=== PATIENT | female | born 1945 | race Caucasian/White ===

== ENCOUNTER 2016-12-15 15:14 | Emergency (ER) | payer OTHER ==
[2016-12-15] MEDS ORDERED: NS 500 ML IV ONE (16:02)
--- NOTE | 2016-12-15 16:11 | EDPHY ---
H & P Time Seen by Provider: 12/15/16 15:55 HPI/ROS: HPI Right-sided abdominal pain. 71-year-old female by private vehicle. She complains of right-sided abdominal pain ongoing for the last 10 days. She reports that it is worse at night when she is laying on her right side. She describes it as a burning and aching sensation. She has had no associated nausea, vomiting or diarrhea. Her last meal was at 10:30 a.m. this morning. She had a normal bowel movement this morning. No bloody or melenic stool. Prior abdominal surgical history includes cholecystectomy. Her appendix is still in. She was evaluated or primary care physician's office and told to come to the emergency department for imaging. ROS: Constitutional: No fever, no chills. No weakness. Eyes: No discharge. No changes in vision. ENT: No sore throat. No nasal congestion or rhinorrhea. Respiratory: No cough. No shortness of breath. Cardiac: No chest pain, no palpitations. Gastrointestinal: As above, no vomiting, no diarrhea. Genitourinary: No hematuria. No dysuria or increased frequency with urination. Musculoskeletal: No back pain. No neck pain. No myalgias or arthralgias. Skin: No rashes. Neurological: No headache. No focal weakness or altered sensation. Past medical history: Hypertension, type 2 diabetes, sleep apnea, COPD, pulmonary hypertension on home O2 2 L 24-7. Cholecystectomy. Social history: Here by herself. No alcohol. Physical Exam: General Appearance: Alert, no distress. Moderately obese habitus. This patient is responding to questions appropriately and in full sentences. This patient appears well-hydrated and well-nourished. Eyes: Pupils equal and round no pallor or injection. No lid edema, erythema or injection. Respiratory: There are no retractions, lungs are clear to auscultation with good air movement bilaterally. Cardiovascular: Regular rate and rhythm. No murmur. Gastrointestinal: Abdomen is soft with vague right sided mid to lower tenderness on palpation, no masses, bowel sounds normal. No focal tenderness at McBurney's point. No Roe sign. Neurological: Motor sensory function is grossly intact. Cranial nerves are normal. Gait is normal. Skin: Warm and dry, no rashes. Musculoskeletal: Neck is supple and nontender. Extremities are symmetrical. All joints range without pain or impingement. Psychiatric: No agitation. No depression. Database: EKG: Imaging: CT scan of abdomen and pelvis with IV contrast: The appendix is well visualized and is unremarkable. Gallbladder is been removed. There is a solid mass left kidney lower pole measuring about a cm. She also has a new right lower lobe lung nodule measuring 8 mm. Some constipation. No AAA. Otherwise unremarkable study. Results were discussed with staff radiologist. Procedures: Emergency department course: After my evaluation, an IV was placed. She was started on IV normal saline with 500 cc to be given over the next hour. She declines pain medication initially. She will be sent for contrast enhanced CT imaging of her abdomen and pelvis. She endorses. 5:10 p.m., patient re-evaluated. She is resting comfortably at this time. Results of her diagnostic tests have been discussed with her. CT results and need for follow-up regarding right lung nodule and left renal mass discussed. We are waiting for her to provide a urine sample for us. Repeat abdominal exam she is soft and without significant tenderness on palpation of her abdomen. 6:30 p.m., patient re-evaluated. Resting comfortably at this time. Repeat abdominal exam she is soft, nontender nondistended. I discussed the results of her urinalysis. I will place her on Keflex for treatment of urinary tract infection. She was given her 1st dose in the emergency department. She feels comfortable going home and I feel she is safe for discharge. Follow-up and return to emergency department precautions were discussed with her in detail. She understands for follow-up. All of her questions were answered. She was discharged from the emergency department in good condition. Differential Diagnosis: The differential diagnosis on this patient includes but is not limited to ureteral lithiasis, appendicitis, colitis. This represents a partial list of diagnoses considered. These considerations are based on history, physical exam , past history, reassessment and diagnostic testing. Smoking Status: Former smoker Constitutional: Initial Vital Signs Temperature (C) 37.1 C 12/15/16 15:18 Heart Rate 63 12/15/16 15:18 Respiratory Rate 16 12/15/16 15:18 Blood Pressure 162/68 H 12/15/16 15:18 O2 Sat (%) 85 L 12/15/16 15:18 O2 Delivery Mode Room Air O2 (L/minute) 2 Allergies/Adverse Reactions: No Known Allergies Allergy (Unverified 07/04/13 13:30) Home Medications: Medication Instructions Recorded Cholecalciferol Vit D3 [Vitamin D3 1,000 units PO DAILY 05/08/13 1000 units (OTC)] DULoxetine [Cymbalta 60 MG (RX)] 120 mg PO DAILY 05/08/13 Gabapentin [Neurontin 300 MG (RX)] 300 mg PO TID 05/08/13 amLODIPine BESYLATE [Norvasc] 10 mg PO DAILY 05/08/13 lamoTRIgine [LamICTAL 100 MG (RX)] 150 mg PO BID 05/08/13 metFORMIN SR [Glucophage Xr] 500 mg PO DAILY@17 05/08/13 Multivitamins [Tab-A-Chichi] 1 each PO DAILY 07/04/13 Aspirin [Aspirin 81mg (OTC)] 81 mg PO DAILY 12/22/13 Dextran 70/Hypromellose 1 drop OP Q2 PRN 12/22/13 [Artificial Tears Eye Drops] Diazepam [Valium] 2 mg PO Q8 PRN 12/22/13 Diclofenac Sodium [Voltaren Gel 1 kevin TP QID PRN 12/22/13 (RX)] Hydralazine HCl [Apresoline 100 mg] 100 mg PO TID 12/22/13 Labetalol HCl [Trandate] 800 mg PO BID 12/22/13 Lisinopril [Zestril 40 mg (RX)] 40 mg PO DAILY 12/22/13 Naproxen 375 mg PO BID PRN 12/22/13 Zolpidem Tartrate [Ambien 5MG (RX)] 5 mg PO HS PRN 12/22/13 oxyCODONE IR [Oxycodone Ir (*)] 5 mg PO Q4 PRN 12/22/13 traZODone [traZODONE 50MG (RX)] 50 mg PO HS 12/22/13 Cephalexin [Keflex (*)] 500 mg PO Q6 5 Days 12/15/16 Medical Decision Making - Data Points Laboratory Results: Laboratory Results 12/15/16 16:20 12/15/16 16:20 12/15/16 12/15/16 17:45 16:20 WBC 5.65 10^3/uL (3.80-9.50) RBC 5.70 H 10^6/uL (4.18-5.33) Hgb 16.2 g/dL (12.6-16.3) POC Hgb 17.3 H gm/dL (12.3-15.9) Hct 49.3 H % (38.0-47.0) POC Hct 51 H % (35.5-47.5) MCV 86.5 fL (81.5-99.8) MCH 28.4 pg (27.9-34.1) MCHC 32.9 g/dL (32.4-36.7) RDW 13.2 % (11.5-15.2) Plt Count 258 10^3/uL (150-400) MPV 9.9 fL (8.7-11.7) Neut % (Auto) 58.5 % (39.3-74.2) Lymph % (Auto) 29.0 % (15.0-45.0) [place] % (Auto) 9.7 % (4.5-13.0) Eos % (Auto) 1.6 % (0.6-7.6) Baso % (Auto) 0.5 % (0.3-1.7) Nucleat RBC Rel Count 0.0 % (0.0-0.2) Absolute Neuts (auto) 3.30 10^3/uL (1.70-6.50) Absolute Lymphs (auto) 1.64 10^3/uL (1.00-3.00) Absolute Monos (auto) 0.55 10^3/uL (0.30-0.80) Absolute Eos (auto) 0.09 10^3/uL (0.03-0.40) Absolute Basos (auto) 0.03 10^3/uL (0.02-0.10) Absolute Nucleated RBC 0.00 10^3/uL (0-0.01) Immature Gran % 0.7 % (0.0-1.1) Immature Gran # 0.04 10^3/uL (0.00-0.10) POC Sodium 141 mEq/L (134-144) Sodium 140 mEq/L (134-144) POC Potassium 4.2 mEq/L (3.3-5.0) Potassium 4.4 mEq/L (3.5-5.2) POC Chloride 102 mEq/L (96-108) Chloride 101 mEq/L (97-110) Carbon Dioxide 27 mEq/l (22-31) Anion Gap 12 mEq/L (8-16) POC BUN 22 mg/dL (7-23) BUN 18 mg/dL (7-23) Creatinine 0.6 mg/dL (0.6-1.0) POC Creatinine 0.7 mg/dL (0.6-1.2) Estimated GFR > 60 Glucose 94 mg/dL (70-100) POC Glucose 99 mg/dL (70-100) Calcium 9.4 mg/dL (8.5-10.4) Total Bilirubin 0.7 mg/dL (0.1-1.4) Conjugated Bilirubin 0.4 mg/dL (0.0-0.5) Unconjugated Bilirubin 0.3 mg/dL (0.0-1.1) AST 46 IU/L (14-46) ALT 55 H IU/L (9-52) Alkaline Phosphatase 80 IU/L (38-126) Total Protein 7.3 g/dL (6.3-8.2) Albumin 3.9 g/dL (3.5-5.0) Lipase 43.0 IU/L (23-300) Urine Color YELLOW Urine Appearance CLEAR Urine pH 5.0 (5.0-7.5) Ur Specific [place] > 1.035 H (1.002-1.030) Urine Protein 1+ H (NEGATIVE) Urine Ketones NEGATIVE (NEGATIVE) Urine Blood NEGATIVE (NEGATIVE) Urine Nitrate POSITIVE H (NEGATIVE) Urine Bilirubin NEGATIVE (NEGATIVE) Urine Urobilinogen NEGATIVE EU (0.2-1.0) Ur Leukocyte Esterase NEGATIVE (NEGATIVE) Urine RBC 1-3 /hpf (0-3) Urine WBC 1-3 /hpf (0-3) Ur Epithelial Cells TRACE /lpf (NONE-1+) Urine Bacteria 3+ H /hpf (NONE SEEN) Ur Culture Indicated? INDICATED H (NI) Urine Glucose NEGATIVE (NEGATIVE) Medications Given: Discontinued Medications Cephalexin (Keflex 500 Mg Prepack#4) 1 btl TAKEHOME EDNOW ONE PRN Reason: Protocol Stop: 12/15/16 18:29 Last Admin: 12/15/16 18:31 Dose: 1 btl Sodium Chloride (Ns) 500 mls @ 0 mls/hr IV ONCE ONE PRN Reason: Wide Open Stop: 12/15/16 16:03 Last Admin: 12/15/16 16:45 Dose: 500 mls Point of Care Test Results: 12/15/16 16:20 POC Sodium 141 POC Potassium 4.2 POC Chloride 102 POC BUN 22 POC Creatinine 0.7 POC Glucose 99 Departure - Departure Disposition: Home, Routine, Self-Care Clinical Impression: Right sided abdominal pain, Urinary tract infection Condition: Good Instructions: Abdominal Pain (ED), Urinary Tract Infection in Women (ED) Additional Instructions: Read and follow provided instructions. Follow-up with your primary care physician in 1-2 days for re-evaluation. As discussed, you have a new right lower lobe lung nodule measuring 8 mm. You will need to have this followed closely. Regarding the left kidney mass that was seen of your CT you will need to follow up with Urology, Dr. Meng or 1 of his partners for further evaluation of this. You should follow-up with urology within the next week. They will have access to your CT scans and will be able to view your images from their office. Take medication as prescribed for treatment of urinary tract infection. Return to the emergency department for worsening abdominal pain, fever, vomiting , blood in your stool or other serious concerns. Referrals: Alexa Hall MD [Primary Care Provider] - As per Instructions Joaquín Meng MD [Medical Doctor] - As per Instructions Prescriptions: Cephalexin [Keflex (*)] 500 mg PO Q6 5 Days
[2016-12-15] MEDS ORDERED: IOPAMIDOL (ISOVUE-300) 100 ML BTL IV ONE (16:30)
[2016-12-15 16:41] LABS: % IMMATURE GRANULYOCYTES 0.7 % (0.0-1.1); ABSOLUTE IMMATURE GRANULOCYTES 0.04 10^3/uL (0.00-0.10); ADD DIFF? NO; ADD MORPH? NO; ADD SCAN? NO; ATYPICAL LYMPHOCYTE FLAG 10 (0-99); FRAGMENT RBC FLAG 0 (0-99); HEMATOCRIT 49.3 % (38.0-47.0); HEMOGLOBIN 16.2 g/dL (12.6-16.3); LEFT SHIFT FLG 0 (0-99); LIPEMIA HEMOLYSIS FLAG 80 (0-99); MEAN CELL HEMOGLOBIN 28.4 pg (27.9-34.1); MEAN CELL HEMOGLOBIN CONCENTR. 32.9 g/dL (32.4-36.7); MEAN CELL VOLUME 86.5 fL (81.5-99.8); MEAN PLATELET VOLUME 9.9 fL (8.7-11.7); PLATELET CLUMPS FLAG 0 (0-99); PLATELET COUNT 258 10^3/uL (150-400); RED CELL DISTRIBUTION WIDTH 13.2 % (11.5-15.2)
[2016-12-15 16:55] LABS: ALANINE AMINOTRANSFERASE 55 IU/L (9-52); ALBUMIN 3.9 g/dL (3.5-5.0); ALKALINE PHOSPHATASE 80 IU/L (38-126); ANION GAP 12 mEq/L (8-16); ASPARTATE AMINOTRANSFERASE 46 IU/L (14-46); BILIRUBIN,TOTAL 0.7 mg/dL (0.1-1.4); BILIRUBIN-CONJUGATED 0.4 mg/dL (0.0-0.5); BILIRUBIN-UNCONJUGATED 0.3 mg/dL (0.0-1.1); CALCIUM 9.4 mg/dL (8.5-10.4); CARBON DIOXIDE 27 mEq/l (22-31); CHLORIDE 101 mEq/L (97-110); CREATININE 0.6 mg/dL (0.6-1.0); GLOMERULAR FILTRATION RATE > 60; GLUCOSE 94 mg/dL (70-100); POTASSIUM 4.4 mEq/L (3.5-5.2); SODIUM 140 mEq/L (134-144); TOTAL PROTEIN 7.3 g/dL (6.3-8.2)
--- NOTE | 2016-12-15 17:28 | CT ---
CT Scan of the Abdomen and Pelvis (With Contrast) at 1642 hours History: Right lower quadrant abdominal pain. Technique: Axial computed tomographic images of the abdomen and pelvis were obtained, with the uneve ntful intravenous administration of 93 mL Isovue-300 contrast. No oral or rectal contrast which limi ts the study. Dose reduction techniques were utilized. Comparison: CT [address] Abdomen Findings Lung bases: Right lower lobe 8-mm nonspecific noncalcified pulmonary nodule, stable since June 3.. Liver: Normal. Biliary system: Prior cholecystectomy. No biliary ductal dilation. Spleen: Normal. Pancreas: Normal. Adrenals: Bilateral adrenal thickening, without focal masses. Kidneys: No nephrolithiasis or urinary tract obstruction. Minimal cortical scarring in the left kid javier. In the left kidney lower pole lateral cortex, there is a 1-cm solid-appearing lesion on image # 151 of series #3. In the right kidney lower pole lateral cortex, there is a 1-cm possible cyst.. Abdominal Aorta: Mild atherosclerotic tortuous abdominal aorta, without aneurysm. No bowel obstruction, ascites, or significant retroperitoneal lymphadenopathy. Periumbilical fat-con taining abdominal wall hernia, measuring [address] Pelvis Findings: Multiple calcified uterine leiomyomata, with the largest on the right measuring 7.7 x 5.8 cm. No definite adnexal masses. No significant adenopathy. No free fluid. No bladder ca lculi noted. Appendix appears normal, without inflammatory changes. Multilevel severe degenerative disk disease lumbar spine and lower thoracic spine at every level, wit h vacuum disk phenomena and multilevel severe bilateral facet arthropathy, resulting in multilevel mo derate to severe central canal stenosis, worse at the L4-L5 level, resulting in spondylolisthesis. Impressions 1. No evidence of appendicitis, bowel obstruction, or significant adenopathy. 2. Prior cholecystectomy. 3. Left kidney lower pole lateral cortex 1-cm solid mass suspicious for renal cell carcinoma. Recom mend Urology Consult. 4. Right lower lobe 8-mm pulmonary nodule, stable since 2012 and, therefore, likely benign. 5. Bilateral adrenal hyperplasia, without focal masses. 6. Atherosclerotic aorta, without aneurysm. 7. Periumbilical abdominal wall hernia. 8. Multiple uterine leiomyomata. 9. Degenerative lumbar spine. Findings and recommendations discussed with Emergency Department physician, Dr. Melo, at 1700 hours, on December 15, 2016. Final report concurs with initial preliminary interpretation. E:calos
[2016-12-15 18:10] LABS: COLOR YELLOW; LEUKOCYTE ESTERASE,URINE NEGATIVE (NEGATIVE); NITRITE,URINE POSITIVE (NEGATIVE)
[2016-12-15 18:23] LABS: BACTERIA 3+ /hpf (NONE SEEN)
[2016-12-15] MEDS ORDERED: CEPHALEXIN 500MG PREPACK#4 BTL TAKEHOME ONE (18:28)
[2016-12-15 18:48] VITALS: BP 168/78; PULSE 72; RESP 20; TEMP 98.6; O2SAT 91
== END 2016-12-15 18:47 | disposition home or self-care (01) ==
DX: N39.0 Urinary tract infection, site not specified (principal); J44.9 Chronic obstructive pulmonary disease, unspecified; E11.9 Type 2 diabetes mellitus without complications; B96.1 Klebsiella pneumoniae [K. pneumoniae] as the cause of diseases classified elsewhere; Z79.82 Long term (current) use of aspirin; Z87.891 Personal history of nicotine dependence; Z90.49 Acquired absence of other specified parts of digestive tract
CPT/HCPCS: 74177; 99285; Q9967; 82947-QW